=== PATIENT | male | born 1965 | race Caucasian/White ===

== ENCOUNTER → 2021-11-07 | Outpatient (CLI) | payer OTHER ==
[~2021-11-07] MED LIST: LISI20TA18 PO
[2021-11-07 09:16] LABS: BASO % 1 % (0-3); EOS # 0.4 x10^3/uL (0.0-0.7); EOS % 6 % (0-3); HEMATOCRIT 44.9 % (39.0-53.0); HEMOGLOBIN 15.1 g/dL (13.0-17.5); LYMPH # 1.5 x10^3/uL (1.0-4.8); LYMPH % 21 % (24-48); MEAN CORPUSCULAR HEMOGLOBIN 31 pg (25-35); MEAN CORPUSCULAR HGB CONC 34 g/dL (31-37); MEAN CORPUSCULAR VOLUME 93 fL (79-100); MONO # 0.8 x10^3/uL (0.0-1.1); MONO % 11 % (0-9); NEUT # 4.3 x10^3/uL (1.8-7.7); NEUT % 62 % (31-73); PLATELET COUNT 283 x10^3/uL (140-400); RED BLOOD COUNT 4.81 x10^6/uL (4.30-5.70); RED CELL DISTRIBUTION WIDTH 13.5 % (11.5-14.5)
[2021-11-07 09:21] LABS: PROTHROMBIN TIME PATIENT 12.1 SEC (11.7-14.0)
[2021-11-07 09:29] LABS: ALBUMIN 3.7 g/dL (3.4-5.0); CALCIUM 8.8 mg/dL (8.5-10.1); CREATININE 1.1 mg/dL (0.7-1.3); GFR 69.8; POTASSIUM 4.4 mmol/L (3.5-5.1)
--- NOTE | 2021-11-07 12:04 | EKG ---
[facility] [address] [place] [address] Test Date: 2021-11-07 Test Time: 12:07:09 Pat Name: RICK PARKER Department: Room: Gender: M Insurance Adjustor: : 1965 Requested By: SHERRI CANTU Order Number: [id number] Reading MD: Mason Orellana Measurements Intervals [place] Rate: 74 P: 30 SC: 162 QRS: 19 QRSD: 114 T: 31 QT: 386 QTc: 429 Interpretive Statements SINUS RHYTHM QRS(T) CONTOUR ABNORMALITY CONSIDER INFERIOR INFARCT POSSIBLY ABNORMAL ECG RI6.01 No previous ECG available for comparison Electronically Signed On 11-09-2021 12:05:58 CDT by Mason Orellana
--- NOTE | 2021-11-07 14:58 | RAD ---
EXAM: XR CHEST 2V 11/07/2021 12:23 PM CLINICAL INDICATION: Joint rehabilitation, hypertension, preop evaluation COMPARISON: None TECHNIQUE: PA and lateral views of the chest FINDINGS: The heart and mediastinum are normal. Lungs are well-expanded and clear. No consolidatio n, pleural effusion, or pneumothorax. Pulmonary vascularity is normal. No acute osseous abnormality. IMPRESSION: Normal chest. Electronically signed by: Alyssa Brooks MD (11/07/2021 2:55 PM) [id number]
[2021-11-08 00:34] LABS: HEMOGLOBIN A1C 5.6 % (4.8-5.6)
== END ==
LOC: SURGPAT 12:31
PROVIDERS: ATTEND Orthopaedic Surgery
DX: Z01.818 Encounter for other preprocedural examination (principal); M17.11 Unilateral primary osteoarthritis, right knee
CPT/HCPCS: 36415; 71046; 80048; 82040; 82306; 83036; 85025; 85610; 85651; 85730; 87641; 93005

== ENCOUNTER 2021-11-23 08:19 | Observation (INO) | payer OTHER ==
[2021-11-09 11:02] VITALS: BP 140/88
[~2021-11-23] VITALS: Ht 170.2 cm; Wt 84.0 kg
[~2021-11-23 08:19] MED LIST changes: +ACETAMINOPHEN 500 MG TABLET PO PRN; +GABAPENTIN 300 MG CAPSULE. PO PRN; +HYDROmorphone 2 MG/ML INJ. IVP PRN; +IV RINGERS,LACTATED 1000ML 1,000 ML IV SCH; +MORPHINE SULFATE 2 MG/ML INJ. IVP PRN; +PROCHLORPERAZINE 10 MG/2 ML VIAL. IVP PRN; +TRANEXAMIC ACID 1,000 MG in IV NS 50ML -- 1ST BAG INJ ONE; +TRANEXAMIC ACID 1,000 MG in IV NS 50ML -- 2ND BAG INJ ONE; +TV=62ml MORPHINE 5 MG, KETOROLAC 30 MG, ROPIV, EPI INT ART ONE; +fentaNYL PF VIAL 100 MCG/2 ML VIAL IVP PRN
[2021-11-23] MEDS ORDERED: ceFAZolin 2GM PREMIX 2 GM/50 ML BAG IV ONE (08:30)
[2021-11-23] MEDS: MELOXICAM 7.5 MG TABLET PO PRN ×2 (08:49→15:47)
[2021-11-23] MEDS ORDERED: TRANEXAMIC ACID in NS IVPB 0 ML ONE (10:10)
--- NOTE | 2021-11-23 10:59 | PDOC4 ---
OPERATIVE NOTE Date: Date: November 23, 2021 Pre-Op Diagnosis: 1. 56-year-old male osteoarthritis right knee Post-Op Diagnosis: 1. 56-year-old male osteoarthritis right knee 2. Status post primary right total knee arthroplasty Procedure Performed: 1. Primary right total knee arthroplasty Surgeon: [facility] Anesthesia Type: General Blood Loss: 50 cc Specimans Obtained: Products of right total knee arthroplasty. Complications: Patient tolerated the procedure well without any apparent intraoperative complications. Operative Note: See dictation. KALYAN BROOKS November 23, 2021 10:59
[2021-11-23] MEDS: IV RINGERS,LACTATED 1000ML 1,000 ML IV SCH (11:00)
[2021-11-23] MEDS ORDERED: CALCIUM CARBONATE 500 MG TAB.CHEW PO PRN (11:00)
[2021-11-23] MEDS ORDERED: IV DEXTROSE 5% 250 ML BAG. IV PRN (11:00)
[2021-11-23] MEDS ORDERED: DEXTROSE 50% 25 GM / 50ML DISP.SYRIN. IV PRN (11:00)
[2021-11-23] MEDS ORDERED: 0.9 % SODIUM CHLORIDE 10 ML DISP.SYRIN. IV PRN (11:00)
[2021-11-23] MEDS ORDERED: MORPHINE SULFATE 2 MG/ML INJ. IVP PRN (11:00)
[2021-11-23] MEDS ORDERED: diphenhydrAMINE 50 MG/ML VIAL IVP PRN (11:00)
[2021-11-23] MEDS ORDERED: fentaNYL PF VIAL 100 MCG/2 ML VIAL ONE ×3 (11:25→13:12)
[2021-11-23] MEDS ORDERED: MIDAZOLAM HCL/PF 2 MG/2 ML VIAL. ONE (11:25)
[2021-11-23] MEDS ORDERED: PROPOFOL 10 MG/ML (20ML) VIAL. IV ONE (11:47)
[2021-11-23] MEDS ORDERED: DEXAMETHASONE SOD PHOS 4 MG/ML VIAL ONE (11:47)
[2021-11-23] MEDS ORDERED: ONDANSETRON PF 4 MG/2 ML VIAL. ONE (11:47)
[2021-11-23] MEDS ORDERED: LIDOCAINE 2% PF 5 ML VIAL. ONE (11:47)
[2021-11-23] MEDS: ONDANSETRON PF 4 MG/2 ML VIAL. IVP SCH ×2 (12:00→18:00)
[2021-11-23] MEDS: ONDANSETRON ODT 4 MG TAB.RAPDIS. PO SCH ×2 (12:00→18:00)
[2021-11-23] MEDS ORDERED: TRANEXAMIC ACID in NS IVPB 100 ML ONE (12:03)
[2021-11-23] MEDS ORDERED: VANCOMYCIN 1 GM VIAL. ONE (12:03)
[2021-11-23] MEDS: fentaNYL PF VIAL 100 MCG/2 ML VIAL IVP PRN ×2 (13:20→13:31)
[2021-11-23] MEDS ORDERED: MORPHINE SULFATE 2 MG/ML INJ. ONE (13:40)
--- NOTE | 2021-11-23 14:09 | RAD ---
Two-view right knee dated 11/23/2021. COMPARISON: None INDICATION: Post knee arthroplasty. FINDINGS: 2 views the right knee show normal bony alignment. No displaced fracture. Total knee arthroplasty. Fe moral and tibial components are intact. No periprosthetic fracture or malalignment. There is soft tis kisha swelling and soft tissue gas. IMPRESSION: Status post right knee arthroplasty. Electronically signed by: Reese Portillo MD (11/23/2021 2:06 PM) LIZA
[2021-11-23 14:15] VITALS: BP 157/95
[2021-11-23] MEDS: SENNOSIDES/DOCUSATE 8.6/50MG TABLET. PO SCH (15:11)
[2021-11-23] MEDS: oxyCODONE IR 5 MG TABLET PO PRN ×2 (15:11→19:37)
[2021-11-23 19:00] VITALS: BP 149/80
[2021-11-23] MEDS: ASPIRIN 325 MG TABLET PO SCH (20:36)
[2021-11-23 23:00] VITALS: BP 150/89
[2021-11-24] MEDS: IV RINGERS,LACTATED 1000ML 1,000 ML IV SCH ×2 (00:20→13:40)
[2021-11-24 03:00] VITALS: BP 136/76
[2021-11-24] MEDS: ONDANSETRON PF 4 MG/2 ML VIAL. IVP SCH ×2 (06:00)
[2021-11-24] MEDS ORDERED: MAGNESIUM HYDROXIDE 2,400 MG/30 ML ORAL.SUSP. PO PRN (06:00)
[2021-11-24] MEDS: ONDANSETRON ODT 4 MG TAB.RAPDIS. PO SCH ×2 (06:00)
[2021-11-24] MEDS: oxyCODONE IR 5 MG TABLET PO PRN ×3 (06:23→21:41)
[2021-11-24 07:00] VITALS: BP 140/79
--- NOTE | 2021-11-24 08:37 | PDOC ---
PROGRESS NOTES Date of Service DATE: 11/24/21 TIME: 08:32 Subjective Subjective POD #1 s/p R TKA Patient seen and examined this morning on rounds. Mobilizing in hallway with therapy staff. Pain controlled at this time. Tolerating p.o. intake postoperatively. Denies chest pain or shortness of air. No abdominal pain or discomfort. Nursing staff reports needing to change dressing to right knee due to excessive bleeding postoperatively. Nursing staff also reports having held the patient's aspirin this morning due to his bleeding from the right knee. Objective Vital Signs Vital Signs Date Time Temp Pulse Resp B/P (MAP) Pulse Ox O2 Delivery O2 Flow Rate FiO2 11/24/21 06:23 20 Room Air 11/24/21 03:00 98.2 86 136/76 (96) 97 98.2 11/23/21 13:52 2.0 Physical Exam Orthopedic examination right lower extremity: Dressings intact. No drainage noted. Compartments are soft compressible. EHL/FHL intact. Plantarflexion/dorsiflexion intact. Wiggles toes on command. Cap refill brisk. Right lower extremity warm and well perfused. Sensation light touch intact all dermatomes. No pain with passive stretch. Negative Homans' sign. No evidence of thrombus. Labs Laboratory Tests Test 11/23/21 08:30 POC SARS CoV-2 Antigen Negative (NEGATIVE) Imaging 2 view post-operative xrays of the right knee performed post-operatively on 11/23 to include AP/Lateral were reviewed this morning. Orthopedic hardware in satisfactory alignment with no acute post-operative abnormalities noted. Assessment Assessment 56 y/o M primary osteoarthritis R knee * s/p R primary TKA 11/23 - [facility] * WBAT RLE * Pain control * DVT ppx (ASA 325mg PO BID) * Post-op abx (Cefazolin) * Encourage use of IS while awake * Post-op lab pending; VSS * Maintain surgical dressing R knee; this dressing should be removed on POD #7. Keep incision covered with dry gauze and tape until your first post-op follow up appointment. * PT/OT for mobilization, gait training and fall prevention * CM for discharge planning; awaiting therapy recs post-op; possibly home with family later today * Follow up with orthopedic clinic in 2 weeks following discharge from the hospital. Call to schedule appointment [phone]. Justicifation of Admission Dx: Justifications for Admission: Justification of Admission Dx: Yes KALYAN BROOKS November 24, 2021 08:37
[2021-11-24] MEDS: SENNOSIDES/DOCUSATE 8.6/50MG TABLET. PO SCH (08:43)
[2021-11-24] MEDS: ASPIRIN 325 MG TABLET PO SCH ×2 (08:43→20:42)
[2021-11-24] MEDS: ACETAMINOPHEN 500 MG TABLET PO SCH ×3 (08:44→20:42)
[2021-11-24] MEDS: LISINOPRIL 20 MG TABLET PO SCH (09:00)
--- NOTE | 2021-11-24 09:00 | NUR ---
removed original surgical dressing and DELICIA removed. they were saturated with serosanguineous drainage. oozes from the incisional line. cleansed with alcohol, pack of 10 4x4's 2 abd Kerlix the mesh applied. aspirin held this am.
--- NOTE | 2021-11-24 09:41 | HP ---
DATE OF SERVICE: 11/24/2021 ADMIT DATE: 11/23/2021 CHIEF COMPLAINT: Right knee replacement. HISTORY OF PRESENT ILLNESS: The patient is a pleasant 56-year-old male who underwent right knee replacement yesterday. We have assumed his care. He is currently being examined on the medical floor. PAST MEDICAL HISTORY: Osteoarthritis. ALLERGIES: None. FAMILY HISTORY: Diabetes. SOCIAL HISTORY: He is retired from the . He does not drink, smoke or take drugs. MEDICATIONS: Reviewed, please refer to the MRAD. REVIEW OF SYSTEMS: GENERAL: No history of weight change, weakness or fevers. SKIN: No bruising, hair changes or rashes. EYES: No blurred, double or loss of vision. NOSE AND THROAT: No history of nosebleeds, hoarseness or sore throat. HEART: No history of palpitations, chest pain or shortness of breath on exertion. LUNGS: Denies cough, hemoptysis, wheezing or shortness of breath. GASTROINTESTINAL: Denies changes in appetite, nausea, vomiting, diarrhea or constipation. GENITOURINARY: No history of frequency, urgency, hesitancy or nocturia. NEUROLOGIC: Denies history of numbness, tingling, tremor or weakness. PSYCHIATRIC: No history of panic, anxiety or depression. ENDOCRINE: No history of heat or cold intolerance, polyuria or polydipsia. EXTREMITIES: He complains of right knee pain. PHYSICAL EXAMINATION: VITALS: Within normal limits and are stable. GENERAL: No apparent distress. Alert and oriented. HEENT: Normal cephalic atraumatic, external auditory canals are patent. EYES: Extraocular muscles are intact, pupils are equally round and reactive to light and accommodation. MUSCULOSKELETAL: Well developed, well nourished, good range of motion. ENDOCRINE: No thyromegaly was palpated. LYMPHATICS: No cervical chain or axillary nodes were noted. HEMATOPOIETIC: No bruising. NECK: Supple, no JVD, no thyromegaly was noted. LUNGS: Clear to auscultation in all lung dinh without rhonchi or wheezing. HEART: RRR, S1, S2 present. Peripheral pulses intact, no obvious murmurs were noted. ABDOMEN: Soft, nontender. Positive bowel sounds no organomegaly, normal bowel sounds. EXTREMITIES: He has clean, dry, intact dressing on the right knee. NEUROLOGIC: Normal speech, normal tone. A and O x 3, moves all extremities, no obvious focal deficits. PSYCHIATRIC: Normal affect, normal mood. Stable. SKIN: No ulcerations or rashes, good skin turgor, no jaundice. VASCULAR: Good capillary refill, neurovascular bundle appears to be intact. LABORATORY DATA: COVID testing negative. ASSESSMENT AND PLAN: Postoperative day #1 right knee replacement. Clinically, he is doing quite well. For now, we are going to do wound care, p.r.n. pain meds, p.r.n. Zofran. Home meds. Deep venous thrombosis prophylaxis. Full code. Suspect he might be able to go home tomorrow if he is doing better. We will trend his hemoglobin. SAM/BINA DR: SAM/sugey TID: [id number]
[2021-11-24 15:00] VITALS: BP 145/70
[2021-11-24] MEDS ORDERED: BISACODYL 10 MG SUPP.RECT. PR PRN (16:00)
--- NOTE | 2021-11-24 17:59 | NUR ---
no active bleeding noted after 2nd rehab session. pain is controlled with oral medications
[2021-11-24 19:20] VITALS: BP 142/82
[2021-11-24 23:07] VITALS: BP 154/84
[2021-11-25] MEDS: IV RINGERS,LACTATED 1000ML 1,000 ML IV SCH (03:00)
[2021-11-25] MEDS: ACETAMINOPHEN 500 MG TABLET PO SCH ×3 (03:04→15:00)
[2021-11-25 03:05] VITALS: BP 149/85
[2021-11-25] MEDS: oxyCODONE IR 5 MG TABLET PO PRN ×3 (03:05→13:36)
--- NOTE | 2021-11-25 06:44 | PDOC ---
PROGRESS NOTES Date of Service DATE: 11/25/21 TIME: 06:43 Subjective Subjective POD #2 s/p R TKA Patient seen and examined this morning. Awake sitting upright in recliner. Pain controlled postoperatively. Tolerating p.o. intake. Patient passing flatus. No abdominal pain or discomfort. No nausea or vomiting overnight. No acute concerns. Objective Vital Signs Vital Signs Date Time Temp Pulse Resp B/P (MAP) Pulse Ox O2 Delivery O2 Flow Rate FiO2 11/25/21 03:35 Room Air 11/25/21 03:05 98.6 82 16 149/85 (106) 98 98.6 11/23/21 13:52 2.0 Physical Exam Orthopedic examination right lower extremity: Dressings intact. No drainage noted. Compartments are soft compressible. EHL/FHL intact. Plantarflexion/dorsiflexion intact. Wiggles toes on command. Cap refill brisk. Right lower extremity warm and well perfused. Sensation to light touch intact throughout all dermatomes. No pain with passive stretch. Negative Homans' sign. No evidence of thrombus. Labs Laboratory Tests Test 11/23/21 08:30 POC SARS CoV-2 Antigen Negative (NEGATIVE) Assessment Assessment 56 y/o M primary osteoarthritis R knee * s/p R primary TKA 11/23 - [facility] * WBAT RLE * Pain control * DVT ppx (ASA 325mg PO BID); aspirin on discharge for 4 weeks * Post-op abx complete * Encourage use of IS while awake * VSS * Maintain surgical dressing R knee; due to drainage from right knee recommend 4 x 4's, ABD and an Devyn wrap for ease of dressing changes. Do not allow dressings to get wet and or any circumstances. In the event that the dressings become grossly contaminated they should be removed and changed immediately. Keep surgical incision clean and covered at all times. * PT/OT for mobilization, gait training and fall prevention * CM for discharge planning; stable for discharge from an orthopedic standpoint * Follow up with orthopedic clinic in 2 weeks following discharge from the hospital. Call to schedule appointment [phone]. Justicifation of Admission Dx: Justifications for Admission: Justification of Admission Dx: Yes KALYAN BROOKS November 25, 2021 06:43
[2021-11-25 07:13] LABS: HEMATOCRIT 34.4 % (39.0-53.0); HEMOGLOBIN 11.5 g/dL (13.0-17.5)
[2021-11-25] MEDS ORDERED: ASPI325T8 PO (07:14)
[2021-11-25] MEDS ORDERED: OXYC5TAB88 PO (07:14)
[2021-11-25 07:29] VITALS: BP 145/83
[2021-11-25] MEDS: SENNOSIDES/DOCUSATE 8.6/50MG TABLET. PO SCH (08:32)
[2021-11-25] MEDS: ASPIRIN 325 MG TABLET PO SCH (08:32)
[2021-11-25] MEDS: LISINOPRIL 20 MG TABLET PO SCH (08:33)
--- NOTE | 2021-11-25 10:15 | PDOC ---
[facility] PROGRESS NOTE Date of Service DOS: DATE: 11/25/21 TIME: 10:14 Chief Complaint Chief Complaint Postop day 2 right knee replacement Osteoarthritis History of Present Illness History of Present Illness 11/25/2021 Patient seen exam The right knee has clean dry intact dressings He is scheduled to go home today Vitals/I&O Vitals/I&O: Vital Signs Date Time Temp Pulse Resp B/P (MAP) Pulse Ox O2 Delivery O2 Flow Rate FiO2 11/25/21 09:57 Room Air 11/25/21 08:33 106 155/96 11/25/21 07:29 98.0 20 99 98.0 I & O 11/24/21 11/24/21 11/25/21 15:00 23:00 07:00 Intake Total 480 ml 340 ml 440 ml Balance 480 ml 340 ml 440 ml Physical Exam General: Alert, Cooperative Lungs: Clear Abdomen: Normal bowel sounds Extremities: Other (Clean dry intact dressings on the right knee) Skin: No rashes Labs Labs: Laboratory Tests Test 11/25/21 06:30 Hemoglobin 11.5 g/dL (13.0-17.5) Hematocrit 34.4 % (39.0-53.0) Mean Corpuscular Hemoglobin Concent 34 g/dL (31-37) Assessment and Plan Assessmemt and Plan Postop day 2 right knee replacement Osteoarthritis Plan Discharge Comment Review of Relevant I have reviewed the following items nic (where applicable) has been applied. Justifications for Admission Other Justification CATIE FLORES III DO November 25, 2021 10:15
--- NOTE | 2021-11-25 15:00 | NUR ---
Tylenol not given, max out.
[2021-11-25 15:16] VITALS: BP 135/77
--- NOTE | 2021-11-25 15:53 | NUR ---
Discharge instructions given. Answered questions and concerns. Verbalized understanding. Pt discharged home with Outpatient therapy. Accompanied by spouse. Escorted out by w/c.
--- NOTE | 2021-11-26 21:06 | DS ---
DATE OF DISCHARGE: 11/25/2021 ADMISSION DIAGNOSIS: Degenerative joint disease of the right knee. DISCHARGE DIAGNOSES: Postoperative day 2, right knee replacement. HOSPITAL COURSE: The patient is a pleasant middle-aged male who presented with right knee degenerative joint disease, underwent an elective knee replacement. Yesterday, I saw and examined him. He is doing well. We discharged to home. DISPOSITION: Home. ACTIVITY: As tolerated. DIET: Low sodium. DISCHARGE MEDICATIONS: Please see the MRAD. P.r.n. oxycodone 5 q.6 hours and aspirin 325 a day, lisinopril 20 a day. Total time 34 minutes. SAM/JO/LULY DR: Fauzia TID: [id number]
--- NOTE | 2021-11-28 16:07 | PATHOLOGY ---
[facility] Accession Number: [id number] . 01 Material submitted: . knee - KNEE BONE AND TISSUE RIGHT . 01 Clinical history: . OSTEOARTHRITIS OF L HIP, R TOTAL KNEE ARTHROPLASTY, RIGHT . 02 Diagnosis: Segments of bone and soft tissue, right total knee arthroplasty: - Focally advanced degenerative arthritis. (JPM:danica; 11/28/2021) QMS 11/28/2021 1456 Local . 02 Electronically signed: . Mahendra Callejas MD, Pathologist NPI- [id number] . 01 Gross description: . The specimen is received in formalin, labeled "Mahendra Mandujano, knee bone and tissue, right" and consists of multiple hard irregular bone fragments (10.9 x 0.5 x 1.1 cm in aggregate) with minimal attached soft tissue and with a portion of meniscus. The articular surfaces are vega-white, smooth and focally granular. A focal area of eburnation (2.4 x 0.6 cm) is identified as well as a focal area of articular surface softening (0.7 x 0.4 cm). Minimal osteophytic growths are identified. W[employer] Worker sections are submitted in one cassette following decalcification. ([place]; 11/24/2021) DKA/DKA 11/24/2021 1117 Local . 02 Pathologist provided ICD-10: M17.11 . 02 CPT . 745142, [id number] Specimen Comment: A courtesy copy of this report has been sent to [phone] Specimen Comment: Report sent to Performed at: [address], [place], [place] [id number] MD Willi Arana MD Phone: [phone] Performed at: 02 [facility] [address] [place], [place] [id number] MD Mahendra Callejas MD Phone: [phone]
--- NOTE | 2021-12-06 15:11 | OP ---
DATE OF SURGERY: 11/23/2021 PREOPERATIVE DIAGNOSIS: Severe degenerative joint disease, right knee. POSTOPERATIVE DIAGNOSIS: Severe degenerative joint disease, right knee. PROCEDURE: Right total knee arthroplasty. SURGEON: Galdino Dodson Jr, DO [employer]: Ajay Corea. ANESTHESIA: General. COMPLICATIONS: None. ESTIMATED BLOOD LOSS: 50 mL. COMPONENTS: This is a noncemented [place] right total knee replacement with components being a 32 patella, size 6 femur, right and a size 5 tibial component with a 9 mm tibial polyethylene insert. DESCRIPTION OF PROCEDURE: The patient was taken to the operative suite, given a general anesthetic. The right lower extremity was then prepped and draped in a sterile fashion. Incision was made through skin and subcutaneous tissues directly over the area of the anterior aspect of the knee. This was carefully taken down to identify the extensor mechanism. Superficial bleeding was coagulated using a Bovie knife. The medial parapatellar incision was then made, then the patella was everted, measured and cut to the appropriate size, 32 was most appropriate. Therefore, this was cut appropriately and then the drill holes for the 32 patella were drilled. The trial component was placed on this for protection. Attention was then directed to the knee, which was taken into 90 degrees of flexion. Retractors were placed medially and laterally. The drill was placed in the distal femur to open up the intramedullary canal and the IM guide was placed in appropriate alignment. This was measured and then the cutting block was placed for the distal cut on the anterior femur, held in appropriate position and orientation with pins and 1 cross pin and then the distal cut was made, this was noted to be a good flush cut. Attention was then directed after this was all removed to the distal femur and then the sizing guide was placed. This was noted to be evident for a size 6 femur. Proper rotation was marked with posterior referencing and the drill holes were made for that. The 4-in-1 guide was then placed on the distal femur on the femoral cut and held with pins, medially and laterally and the anterior, posterior and the chamfer cuts were then made. Excess bone was removed as well as the cutting block. Attention was then directed to the tibial side of the joint. The medial and lateral meniscal remnants were removed as well as the ACL, the PCL remained completely intact and after retractors were placed medially, laterally and posteriorly the external tibial guide was placed in appropriate position and orientation. The proximal tibia was then cut appropriately. This was noted to be a good flush cut. Trial components were placed and taken through range of motion. There was excellent stability with proper tracking in patellofemoral joint as well as rotation marked for the tibial component. This was held with pins and then the drill and the keel were placed to the appropriate depth for the component itself and the drill holes were made for the femoral component through the trial. All trial components were then removed and then this was copiously irrigated and suctioned dry. The tibia was impacted first, this was a noncemented. Therefore, this was impacted, followed by the femoral component. This was also noted to be stable and secured as well. The 9 mm tibial polyethylene insert was placed within the tibial side of the joint and noted to be secured within the tibial component. The same was done on the patella, which was held with a patellar clamp and actually was excellent fixation at this point. This was then taken through a range of motion 0-120 degrees of flexion without any abnormalities of the patellofemoral joint. This was balanced appropriately. This was thoroughly irrigated again first with Betadine followed by the irrigation sterile saline. The medial parapatellar incision was closed after tourniquet was deflated with good return of pulses and capillary refill with no excessive bleeding noted. Then, after the medial parapatellar incision was closed superficial tissues and skin was reapproximated. Local was placed. Sterile dressing was applied. The patient was then taken from the operative bed to the postoperative bed, taken to the PACU in stable condition. JAY/REA/[facility] [place]: Mike TID: [id number]
== END 2021-11-25 15:55 | disposition home or self-care (01) ==
LOC: SURG 08:19 → 4 NORTH 10:53 → INTOOBSV 10:53
PROVIDERS: ADMIT Orthopaedic Surgery; ATTEND Orthopaedic Surgery
DX: M17.11 Unilateral primary osteoarthritis, right knee (principal); Z20.822 Contact with and (suspected) exposure to COVID-19; M19.90 Unspecified osteoarthritis, unspecified site
CPT/HCPCS: 27447; 36415; 73560; 85014; 85018; 86850; 86900; 86901; 88305; 88311; 96365; 96366; 96376; 97116; 97150; 97162; 97165; 97530; 97535; A4213; A4930; A6253; A6258; A6450; A6550; C1776; G0378; G0379; J0171; J0690; J1100; J1885; J2250; J2270; J2405; J2704; J2795; J3010; A6454; J3370